=== PATIENT | female | born 1995 ===

== ENCOUNTER 2023-09-09 22:23 | Emergency (ER) | payer MEDICAID, OTHER ==
[~2023-09-09] VITALS: Ht 162.6 cm; Wt 104.5 kg
[2023-09-09 22:48] VITALS: BP 131/77; PULSE 69; RESP 18; O2SAT 99
[2023-09-09] MEDS ORDERED: MUPI2OIN2 EX (23:28)
[2023-09-09] MEDS ORDERED: CEPH500C PO (23:28)
[2023-09-09] MEDS ORDERED: diphenhdrAMINE HCL 25 MG CAP PO ONE (23:30)
[2023-09-09] MEDS ORDERED: DexAMETHasone SOD PHOS 10MG/1ML VIAL INJ PO ONE (23:30)
== END 2023-09-10 00:56 | disposition home or self-care (01) ==
LOC: ER 22:23
DX: S80.862A Insect bite (nonvenomous), left lower leg, initial encounter (principal); W57.XXXA Bitten or stung by nonvenomous insect and other nonvenomous arthropods, initial encounter; Y93.89 Activity, other specified; Y92.89 Other specified places as the place of occurrence of the external cause; Y99.8 Other external cause status
CPT/HCPCS: 99283; J1100